=== PATIENT | male | born 1960 | race Caucasian/White ===

== ENCOUNTER → 2016-10-31 | Outpatient (CLI) | payer OTHER | LOC: BMCIMAGING 10:55 | PROVIDERS: ATTEND Emergency Medicine | DX: R05 Cough (principal) ==

== ENCOUNTER 2017-07-20 13:43 | Emergency (ER) | payer OTHER ==
--- NOTE | 2017-07-20 15:30 | EDPHY ---
H & P Time Seen by Provider: 07/20/17 14:56 HPI/ROS: HPI Abdominal pain. 56-year-old male by private vehicle with his daughter. This patient complains of periumbilical abdominal pain which which she describes as a dull ache sometimes burning sensation with the epicenter in the periumbilical area but then radiation down into the left lower quadrant and the left side of his abdomen. He reports he has had this pain intermittently since May. He reports that over the last week it has become worse. He reports that it has become more persistent over the last few days the pain has increased significantly. He reports that he was up all last night with the pain. He has several friends recently who were diagnosed with pancreatic cancer. He is concerned about pancreatic cancer. He denies any associated nausea or vomiting. He has been eating normally. No diarrhea. No bloody or melenic stool. Last bowel movement was this morning and described as normal. Last meal was lunch earlier today. No abdominal surgical history. Denies any urinary complaints. ROS: Constitutional: No fever, no chills. No weakness. Eyes: No discharge. No changes in vision. ENT: No sore throat. No nasal congestion or rhinorrhea. Respiratory: No cough. No shortness of breath. Cardiac: No chest pain, no palpitations. Gastrointestinal: As above, no vomiting, no diarrhea. Genitourinary: No hematuria. No dysuria or increased frequency with urination. No testicular pain. Musculoskeletal: No back pain. No neck pain. No myalgias or arthralgias. Skin: No rashes. Neurological: No headache. No focal weakness or altered sensation. Past medical history: Appendectomy. Social history: Nonsmoker. No alcohol. Here with his daughter. Very physically active. Physical Exam: General Appearance: Alert, pleasant 56-year-old male, no distress. This patient is responding to questions appropriately and in full sentences. This patient appears well-hydrated and well-nourished. Eyes: Pupils equal and round no pallor or injection. No lid edema, erythema or injection. Respiratory: There are no retractions, lungs are clear to auscultation with good air movement bilaterally. Cardiovascular: Regular rate and rhythm. No murmur. Gastrointestinal: Abdomen is soft with vague periumbilical and left lower quadrant tenderness on palpation, no masses, bowel sounds normal. No focal tenderness at McBurney's point. No Camarena sign. Neurological: Motor sensory function is grossly intact. Cranial nerves are normal. Gait is normal. Skin: Warm and dry, no rashes. Musculoskeletal: Neck is supple and nontender. Extremities are symmetrical. All joints range without pain or impingement. Psychiatric: No agitation. No depression. Database: EKG: Imaging: CT scan of abdomen and pelvis with IV contrast: Small, 1 cm nodule superior left kidney. Likely benign. Some constipation, some diverticulosis but no diverticulitis. Pancreas well visualized and is normal. Results were discussed with staff radiologist Dr. Aj Noel. Procedures: Emergency department course: Vital signs reviewed and are normal. IV was placed. He was per the stone 500 cc of IV normal saline. Patient is requesting CT imaging. He explains to me that he is up at night very concerned about the etiology of his pain. After evaluation of his renal function will be sent for a contrast enhanced CT scan of the abdomen and pelvis. 5:30 p.m., patient re-evaluated. Resting comfortably at this time. Results of CT scan, blood work and urinalysis discussed with him and his . All of their questions were answered. He feels comfortable going home and I feel he is safe for discharge. Follow-up and return to emergency department precautions reviewed with him. He was discharged in good condition with his . Differential Diagnosis: The differential diagnosis on this patient includes but is not limited to abdominal wall hernia, diverticulitis, enteritis, colitis. Appendicitis, cholecystitis, volvulus/bowel obstruction, testicular torsion unlikely. This represents a partial list of diagnoses considered. These considerations are based on history, physical exam, past history, reassessment and diagnostic testing. Smoking Status: Never smoked Constitutional: Initial Vital Signs Temperature (C) 36.4 C 07/20/17 13:47 Heart Rate 59 L 07/20/17 13:47 Respiratory Rate 20 07/20/17 13:47 Blood Pressure 126/69 H 07/20/17 13:47 O2 Sat (%) 96 07/20/17 13:47 O2 Delivery Mode Room Air Allergies/Adverse Reactions: Penicillins Allergy (Verified 07/20/17 13:46) Home Medications: Medication Instructions Recorded AMITRIPTYLINE HCL 04/24/11 Aspirin 81mg 04/24/11 Embrel Inj 04/24/11 SYNTHROID 04/24/11 Hydrocodone/APAP 5/325 [[place] 1 - 2 tab PO Q4-6PRN PRN #7 tab 07/20/17 5/325 (*)] Ranitidine HCl 07/20/17 Medical Decision Making - Diagnostics Imaging Results: Imaging Impressions Abdomen CT 07/20/17 15:26 Impression: 1. Trace free fluid in the pelvis, with no acute findings. 2. Indeterminate 1-cm hypodensity in the anterosuperior left kidney, new since 2009. Recommend renal ultrasound or renal mass protocol CT for further evaluation, as this is higher in attenuation than expected for a simple cyst and could represent a solid mass. 3. Nonobstructing nephrolithiasis. 4. Moderate stool in the colon. 5. Diverticulosis, without evidence of diverticulitis. 6. Additional findings, as above. Findings discussed with Lincoln Spangler M.D., on July 20, 2017 at 1728. - Data Points Laboratory Results: Laboratory Results 07/20/17 15:36 07/20/17 15:36 07/20/17 07/20/17 07/20/17 15:36 15:36 14:54 WBC 5.61 10^3/uL 10^3/uL (3.80-9.50) RBC 4.67 10^6/uL 10^6/uL (4.40-6.38) Hgb 14.2 g/dL g/dL (13.7-17.5) Hct 42.0 % % (40.0-51.0) MCV 89.9 fL fL (81.5-99.8) MCH 30.4 pg pg (27.9-34.1) MCHC 33.8 g/dL g/dL (32.4-36.7) RDW 12.4 % % (11.5-15.2) Plt Count 201 10^3/uL 10^3/uL (150-400) MPV 10.5 fL fL (8.7-11.7) Neut % (Auto) 63.1 % % (39.3-74.2) Lymph % (Auto) 24.8 % % (15.0-45.0) Greene % (Auto) 11.1 % % (4.5-13.0) Eos % (Auto) 0.4 % L % (0.6-7.6) Baso % (Auto) 0.4 % % (0.3-1.7) Nucleat RBC Rel Count 0.0 % % (0.0-0.2) Absolute Neuts (auto) 3.55 10^3/uL 10^3/uL (1.70-6.50) Absolute Lymphs (auto) 1.39 10^3/uL 10^3/uL (1.00-3.00) Absolute Monos (auto) 0.62 10^3/uL 10^3/uL (0.30-0.80) Absolute Eos (auto) 0.02 10^3/uL L 10^3/uL (0.03-0.40) Absolute Basos (auto) 0.02 10^3/uL 10^3/uL (0.02-0.10) Absolute Nucleated RBC 0.00 10^3/uL 10^3/uL (0-0.01) Immature Gran % 0.2 % % (0.0-1.1) Immature Gran # 0.01 10^3/uL 10^3/uL (0.00-0.10) Sodium 142 mEq/L mEq/L (135-145) Potassium 3.9 mEq/L mEq/L (3.5-5.2) Chloride 104 mEq/L mEq/L (97-110) Carbon Dioxide 27 mEq/l mEq/l (22-31) Anion Gap 11 mEq/L mEq/L (8-16) BUN 20 mg/dL mg/dL (7-23) Creatinine 1.0 mg/dL mg/dL (0.7-1.3) Estimated GFR > 60 Glucose 97 mg/dL mg/dL (70-100) Calcium 9.0 mg/dL mg/dL (8.5-10.4) Total Bilirubin 0.8 mg/dL mg/dL (0.1-1.4) Conjugated Bilirubin 0.4 mg/dL mg/dL (0.0-0.5) Unconjugated Bilirubin 0.4 mg/dL mg/dL (0.0-1.1) AST 27 IU/L IU/L (17-59) ALT 30 IU/L IU/L (21-72) Alkaline Phosphatase 56 IU/L IU/L (38-126) Total Protein 6.5 g/dL g/dL (6.3-8.2) Albumin 3.8 g/dL g/dL (3.5-5.0) Lipase 39 IU/L IU/L (23-300) Urine Color YELLOW Urine Appearance CLEAR Urine pH 5.0 (5.0-7.5) Ur Specific Concrete 1.017 (1.002-1.030) Urine Protein NEGATIVE (NEGATIVE) Urine Ketones TRACE H (NEGATIVE) Urine Blood NEGATIVE (NEGATIVE) Urine Nitrate NEGATIVE (NEGATIVE) Urine Bilirubin NEGATIVE (NEGATIVE) Urine Urobilinogen NEGATIVE EU EU (0.2-1.0) Ur Leukocyte Esterase NEGATIVE (NEGATIVE) Urine Glucose NEGATIVE (NEGATIVE) Departure - Departure Disposition: Home, Routine, Self-Care Clinical Impression: Abdominal pain Condition: Good Instructions: Acute Abdominal Pain (ED) Additional Instructions: Read and follow provided instructions. Follow-up with your primary care physician in 1-2 days for re-evaluation as needed. Ibuprofen dosin mg every 6 hours with meals for the next 3 days only. Take only as needed for pain. [place]: 1-2 orally every 4-6 hours as needed for pain. Do not drive on this medication. Return to the emergency department for worsening abdominal pain, fever, vomiting , blood in her stool or other serious concerns. Left kidney nodule should have follow-up ultrasound imaging in 1-2 months. This can be arranged through her primary care physician. Referrals: Michelle Pérez MD [Primary Care Provider] - As per Instructions Prescriptions: Hydrocodone/APAP 5/325 [[place] 5/325 (*)] 1 - 2 tab PO Q4-6PRN PRN #7 tab PRN Reason: Pain, Moderate
[2017-07-20 15:48] LABS: PLATELET COUNT 201 10^3/uL (150-400)
[2017-07-20] MEDS ORDERED: IOPAMIDOL (ISOVUE-300) 100 ML BTL ONE (16:46)
[2017-07-20 18:04] VITALS: BP 124/74
== END 2017-07-20 18:05 | disposition home or self-care (01) ==
DX: R10.33 Periumbilical pain (principal); R10.32 Left lower quadrant pain; Z79.82 Long term (current) use of aspirin; Z90.49 Acquired absence of other specified parts of digestive tract
CPT/HCPCS: Q9967

== ENCOUNTER → 2017-08-18 | Outpatient (CLI) | payer OTHER | LOC: FIMAGING 16:26 | PROVIDERS: ATTEND Internal Medicine | DX: N28.1 Cyst of kidney, acquired (principal) ==

== ENCOUNTER → 2018-04-19 | Outpatient (CLI) | payer OTHER ==
[~2018-04-19] MED LIST: GADOBUTROL 10 ML VIAL IVP ONE
== END ==
LOC: FIMAGING 06:53
PROVIDERS: ATTEND Urology
DX: N28.1 Cyst of kidney, acquired (principal); D18.09 Hemangioma of other sites
CPT/HCPCS: A9585